=== PATIENT | female | born 1975 | race Caucasian/White ===

== ENCOUNTER 2023-10-16 06:29 | Day surgery (SDC) | payer BC ==
[~2023-10-16] VITALS: Ht 170.2 cm; Wt 100.0 kg
[~2023-10-16 06:29] MED LIST: ACIDOPHILUS1 EAC4 PO; BACLOFEN10 MG PO; COZAAR100 MG PO; CYMBALTA60 MG PO; FARXIGA10 MG PO; K-TAB ER20 MEQ PO; LACTATED RINGER'S 1,000 ML IV SCH; LOSARTAN POTASS25 MG PO; MAG-OXIDE200 MG PO; MELATONIN5 M2 PO; METFORMIN HCL500 MG PO; ONE DAILY FOR1 EACH PO; PSEUDOEPHEDRIN120 MG PO; ST. JOHN'S WOR300 MG PO; SUDAFED 12 HOU120 MG PO; TOPROL XL25 MG PO; TRAMADOL HCL50 MG PO; TYLENOL PM EXS1 EACH PO; VITAMIN C500 M1 PO; VITAMIN D31000 UNI1 PO; ZINC50 MG PO
[2023-10-16] MEDS ORDERED: KETOROLAC TROMETHAMINE 30 MG/ML VIAL ONE ×2 (06:39→07:43)
[2023-10-16 06:58] VITALS: BP 148/107
[2023-10-16] MEDS ORDERED: CEFAZOLIN SODIUM 2 GM/20 ML SYR IV SCH (07:00)
[2023-10-16] MEDS ORDERED: IBLOOD GLUCOSE TEST STRIP 1 EA TEST VI PRN (07:00)
[2023-10-16] MEDS ORDERED: LIDOCAINE HCL 1% 5 ML SDV INJ ONE (07:00)
[2023-10-16] MEDS ORDERED: HYDROCODONE/ACETA 5/325 TAB PO PRN (07:15)
[2023-10-16] MEDS ORDERED: LIDOCAINE HCL 2% 5 ML SDV ONE (07:22)
[2023-10-16] MEDS ORDERED: propofoL 200 MG/20 ML VIAL ONE (07:22)
[2023-10-16] MEDS ORDERED: MIDAZOLAM HCL 2 MG/2 ML VIAL ONE (07:22)
[2023-10-16 07:33] VITALS: BP 146/94
[2023-10-16] MEDS ORDERED: ACETAMINOPHEN 1,000 MG/100 ML VIAL ONE (07:41)
[2023-10-16] MEDS ORDERED: ondansetron HCL 4 MG/2 ML VIAL ONE (07:43)
[2023-10-16] MEDS ORDERED: dexmedeTOMIDine HCl 200 MCG/2 ML VIAL ONE (07:52)
[2023-10-16] MEDS ORDERED: CELECOXIB 200 MG CAP PO SCH (08:00)
[2023-10-16] MEDS ORDERED: CELECOXIB200 MG PO (08:17)
[2023-10-16] MEDS ORDERED: HYDROCODON-ACE1 EA10 PO (08:17)
--- NOTE | 2023-10-16 08:24 | NUR ---
10/16/23 0824 Allyson Ewing 0814 PT TO PACU SLEEPING ORAL AIRWAY IN PLACE O2 VIA MASK FOGGING NOTED IN MASK.
[2023-10-16 08:54] VITALS: BP 141/110
[2023-10-16 10:05] VITALS: BP 144/90
--- NOTE | 2023-10-16 10:07 | NUR ---
1005 PT PAIN HAS COME DOWN FROM A 7/10 TO A 5/10. PT VITALS TAKEN. PT TOLERATING PO WATER AND SNACKS. PT VOIDED 200 MLS. PT HAS AT BEDSIDE. PT HAS CALL LIGHT WITHIN REACH, PT HAS PERSONAL ITEMS WITHIN REACH. PT AND FAMILY HAVE NO FURTHER QUESTIONS AT THIS TIME.
[2023-10-16 10:38] VITALS: BP 150/64
--- NOTE | 2023-10-16 11:00 | NUR ---
1030 VITALS TAKEN. PAIN 5/10 TOLERABLE PAIN. ICE ON SURGICAL SITE. PT ABLE TO TOLERATE PO FOOD AND WATER. CAP REFILL LESS THAN 2 SECONDS IN LOWER RIGHT EXTREMITY. PEDAL PULSE IN LOWER RIGHT EXTREMITY STRONG. PT ABLE TO AMBULATE WITH CANE. 1040 DISCHAREGE INFORMATION GONE OVER WITH AT BEDSIDE. PT AND HAVE NO QUESTIONS AT THIS TIME. 1050 PT WHEELED OUT OF DAY SURGERY VIA WHEELCHAIR TO FRONT OF HOSPITAL TO HUSBANDS CAR.
--- NOTE | 2023-10-19 07:03 | OR ---
[facility] [address] [place], [place] [address] Signed DATE OF OPERATION: 10/16/2023 SURGEON: Cristin Ewing MD PREOPERATIVE DIAGNOSIS: Medial meniscus tear, right knee. POSTOPERATIVE DIAGNOSIS: Medial meniscus tear, right knee. PROCEDURE PERFORMED: Right knee arthroscopy with partial medial meniscectomy. SUPER[employer] PLANT PROTECTION: None. ANESTHESIA: General. BLOOD LOSS: Minimal. BRIEF HISTORY: Antony is a 48-year-old female with progressive worsening of pain and locking in her knee. MRI was consistent with a large posteromedial meniscus tear. Risks and benefits of operative treatment were discussed with her and she elected to proceed. Once consent was obtained, she was taken to the operating room. After adequate anesthesia, she was placed on the operating table. The left leg was flexed, abducted, and externally rotated on a well-padded leg oliveros. The right was placed in well-padded proximal thigh leg oliveros with no tourniquet. The leg was then prepped and draped in standard sterile fashion. Portal sites were injected with 0.25% Marcaine with epinephrine. Standard inferolateral and superolateral portals were made and the scope was introduced into the knee. ARTHROSCOPIC FINDINGS: Moderate significant synovitis was noted throughout the knee. The patella was centered and showed minimal chondromalacia. Medial and lateral gutters were clear. ACL was intact. Lateral compartment was intact. Medial compartment showed a large complex tear from posterior horn extending from the midbody medially. There were horizontal and radial components. The chondral surfaces were relatively intact. Electronically Signed By: CRISTIN EWING MD 10/19/23 0703 PATIENT NAME: ANTONY MITCHELL OPERATIVE REPORT DATE OF : 77 REPORT #: [id number] PHYSICIAN: CRISTIN EWING MD PCP: SYDNEY WHEELER NP REPORT IS CONFIDENTIAL AND NOT TO BE RELEASED WITHOUT AUTHORIZATION [facility] [address] [facility] [place] [address] Signed DESCRIPTION OF OPERATION: Standard inferomedial portal was made after localization using a spinal needle. The straight and curved biters were then used to trim the meniscus back to a stable rim anteriorly posteriorly. A large amount of meniscus was removed. This was then smoothed using shaver and all debris was evacuated. The scope was then withdrawn. Portals were closed with 3-0 nylon and the knee was injected with 60 mg Toradol. The wounds were closed with 3-0 nylon and dressed with Adaptic, ABD and Marques wrap. She tolerated the procedure well. All sponge, needle, and instrument counts were correct. Cristin Ewing MD BA/DAR /[id number] Copies: ~ Electronically Signed By: CRISTIN EWING MD 10/19/23 0703 PATIENT NAME: ANTONY MITCHELL OPERATIVE REPORT DATE OF : 77 REPORT #: [id number] PHYSICIAN: CRISTIN EWING MD PCP: SYDNEY WHEELER NP REPORT IS CONFIDENTIAL AND NOT TO BE RELEASED WITHOUT AUTHORIZATION
== END 2023-10-16 10:50 | disposition home or self-care (01) ==
LOC: DS 06:29
PROVIDERS: ATTEND Specialist
PROC: 0SBC4ZZ Excision of Right Knee Joint, Percutaneous Endoscopic Approach (ICD-10-PCS; principal; 2023-10-16 07:40)
DX: S83.241A Other tear of medial meniscus, current injury, right knee, initial encounter (principal); F41.9 Anxiety disorder, unspecified; F32.A Depression, unspecified; I10 Essential (primary) hypertension
CPT/HCPCS: 84703; 93005; 93010; J0131; J0690; J1885; J2001; J2250; J2405; J2704; J7121